=== PATIENT | female | born 1970 | race Asian ===

== ENCOUNTER 2021-09-21 17:10 | Emergency (ER) | payer OTHER, MEDICAID, SELFPAY ==
[2021-09-21] VITALS (10 sets, daily range): BP systolic 105–128; BP diastolic 59–78; PULSE 50–71; RESP 18–29; TEMP 36.2; O2SAT 98–99; BMI 20.5
--- NOTE | 2021-09-21 17:35 | ED.NEUROSD ---
HPI - Neuro Symptoms/Deficit General Chief Complaint: Neuro Symptoms/Deficit Stated Complaint: MOUTH AND LT SIDED NECK NUMBNESS Time Seen by Provider: 09/21/21 17:20 Source: patient and family Mode of arrival: Ambulatory History of Present Illness HPI Narrative: Patient is a 51-year-old female who presents today complaining of left sided jaw numbness and pain along the left side of the neck. She states that earlier today while she was working in her garden she started having this sensation. She states that she has had a history of TIA in the past. She also was having some upper abdominal epigastric pain that was brief and has subsided. Patient mentioned it during our interaction however she is not concerned about it and does not feel it warrants investigation. Patient denies headache or vision changes. She recently traveled from [place] in the last few months she did receive 1 COVID vaccine but did not receive any subsequent vaccines. She denies any fever cough chills congestion shortness of breath chest pain. She denies any nausea or vomiting or diarrhea. On Anticoagulants: No Related Data Allergies Allergy/AdvReac Type Severity Reaction Status Date / Time No Known Drug Allergies Allergy Verified 09/21/21 17:29 Review of Systems Review of Systems ROS Unobtainable: All systems reviewed & are unremarkable except as noted in HPI and below Constitutional Constitutional: Denies chills, Denies fatigue, Denies fever(s), Denies frequent falls, Denies lethargy and Denies weakness Eyes Eyes: Denies change in vision, Denies eye discharge, Denies irritation and Denies loss of vision ENT Ears, Nose, Mouth, and Throat: Denies change in voice, Denies dizziness, Reports facial pain, Reports neck pain, Denies sore throat and Denies throat swelling Cardiovascular Cardiovascular: Denies chest pain, Denies irregular heart rhythm, Denies lightheadedness, Denies palpitations, Denies dyspnea, Denies dyspnea on exertion and Denies orthopnea Respiratory Respiratory: Denies cough, Denies dyspnea, Denies dyspnea on exertion and Denies wheezing Gastrointestinal Gastrointestinal: Denies abdominal pain, Denies change in bowel habits, Denies diarrhea, Denies nausea and Denies vomiting Genitourinary Genitourinary: Denies hematuria, Denies flank pain, Denies urinary incontinence and Denies urinary urgency Musculoskeletal Musculoskeletal: Denies back pain, Denies muscle weakness, Reports neck pain, Denies numbness and Denies tingling Integumentary/Breasts Skin/Breast: Denies pruritus, Denies erythema, Denies rash and Denies wounds Neurologic Neurologic: Denies behavioral changes, Denies confusion, Denies dizziness, Denies frequent falls, Denies loss of vision, Denies numbness, Denies tingling and Denies weakness Psychiatric Psychiatric: Denies anxiety, Denies behavioral changes, Denies confusion, Denies depression, Denies homicidal ideation and Denies suicidal ideation Endocrine Endocrine: Denies fatigue, Denies flushing and Denies palpitations Hematologic/Lymphatic Hematologic/Lymphatic: Denies easy bruising On Anticoagulants: No Allergic/Immunologic Allergic/Immunologic: Denies urticaria, Denies throat swelling and Denies wheezing Patient History Social History Smoking Status: Never smoker Smoking Status: Never smoker alcohol intake frequency: 0-2 drinks per day Substance Use Type: does not use Exam Initial Vital Signs Initial Vital Signs: Vital Signs Temperature 97.1 F L 09/21/21 17:13 Pulse Rate 71 09/21/21 17:13 Respiratory Rate 18 09/21/21 17:13 Blood Pressure 128/78 09/21/21 17:13 Pulse Oximetry 98 09/21/21 17:13 Const General: cooperative, healthy appearing, comfortable and well developed Nutritional Appearance: average body habitus Orientation: Orientation [facility] Head: normal to inspection, normocephalic and atraumatic Ears: hearing grossly normal bilaterally and external ears normal Nose: external nose normal and nares normal Face and sinus: normal facial exam, face symmetric and tenderness on the left mandible, submandibular and angle of jaw Neck Neck: normal visual inspection, full ROM, no meningeal signs and tender Resp Effort & Inspection: normal respiratory effort and able to speak in complete sentences Auscultation: clear to auscultation bilaterally Cardio Rate: regular rate Rhythm: regular rhythm Heart Sounds: S1 normal and S2 normal Back/Spine/Pelvis Cervical Spine: pain with cervical ROM, cervical spasm and cervical spinal tenderness Skin General: no rashes or lesions noted Neuro General: patient alert, patient awake, patient oriented x3, moves all extremities, CN's II-XI intact bilaterally and deep tendon reflexes 2+ bilaterally Cranial Nerves: CN's II-XI intact bilaterally, sense of smell intact, PERRL, accommodation normal, EOM intact bilaterally, facial strength normal, tongue midline, hearing normal, able to rotate head bilaterally and able to elevate shoulders bilaterally Cognition: normal cognition Speech: speech normal Gait: normal gait Motor: muscle tone normal throughout, strength 5/5 throughout and no pronator drift Course Orders Ordered: ED Orders 09/21/21 17:33 CT head/brain wo con Stat CBC Auto Diff [Complete Blood Count AUTO DIFF] Stat 09/21/21 17:36 XR cervical spine 2V or 3V Stat EKG-12 Lead Routine 09/21/21 17:37 COVID19 -Nasal swab/Pre-Proc Stat 09/21/21 17:40 CT soft tissue neck w con Stat Troponin & CK Cardiac Panel Stat 09/21/21 17:41 CMP [Comprehensive Metabolic Panel] Stat Vital Signs Vital signs: Vital Signs - 8 hr 09/21/21 17:13 Temperature 97.1 F L Pulse Rate 71 Respiratory Rate 18 Blood Pressure 128/78 Pulse Oximetry 98 Discharge Plan Departure Referrals: Caterina Bonilla MD [Primary Care Provider] -
--- NOTE | 2021-09-21 17:41 | PC.NURSE ---
Patient presents with c/o numbness inside mouth, left side of face and pain in left side of neck. Patient reports episode of epigastric abd pain and dizziness while driving around 1330 which has sense resolved. Patient states she has had some GI issues over last week after a new medication for female issues Patient also states she has had some intermittent dizziness and generalized fatigue over the weekend. At time of TIA workup in [place] couple months ago patient had elevated cholesterol, which has now improved. Patient continues to take aspirin.
--- NOTE | 2021-09-21 17:51 | PC.NURSE ---
Patient declined blood draw. Provider aware
[2021-09-21 18:20] LABS: COVID19 -Nasal RAPID Negative (Negative)
[2021-09-21 19:01] LABS: Add Manual Diff / Slide Review NO; Basophils Absolute Auto 100 /uL (0-100); Basophils Percent Auto 1.7 % (0-2); Eosinophils Absolute Auto 100 /uL (0-450); Eosinophils Percent Auto 2.5 % (2-4); Hemoglobin 11.8 g/dL (12.0-16.0); Lymphocytes Absolute Auto 1700 /uL (1100-4500); Lymphocytes Percent Auto 40.7 % (25-40); Mean Corpuscular HGB Conc 33.7 % (30-36); Mean Corpuscular Hemoglobin 30.4 PG (26-34); Mean Corpuscular Volume 90.3 fL (80-100); Monocytes Absolute Auto 400 /uL (0-900); Monocytes Percent Auto 10.1 % (3-14); Neutrophils Absolute Auto 1900 /uL (1500-7000); Platelet Count 177 X10^3/uL (150-400); Red Blood Cell Count 3.88 X10^6/uL (4.0-5.2); Red Cell Distribution Width 12.1 % (11.6-14.8); White Blood Cell Count 4.2 X10^3/uL (4.5-11.0)
[2021-09-21 19:11] LABS: Creatine Kinase 70 U/L (30-135)
[2021-09-21 19:24] LABS: Troponin I < 0.012 ng/mL (0.01-0.034)
[2021-09-21 20:28] LABS: Alanine Aminotransferase 18 IU/L (<35); Albumin 4.4 g/dL (3.5-5.0); Albumin Globulin Ratio 1.5 (1.0-2.8); Alkaline Phosphatase 88 U/L (38-126); Aspartate Aminotransferase 33 IU/L (14-36); BUN Creatinine Ratio 25.4 (6-22); Bilirubin Total 0.3 mg/dL (0.2-1.3); Blood Urea Nitrogen 17 mg/dL (7-17); Calcium 9.1 mg/dL (8.4-10.2); Carbon Dioxide 28 mmol/L (22-32); Chloride 105 mmol/L (98-107); Estimated Glomerular Filt Rate > 60.0 mL/min (>60); Glucose 84 mg/dL (70-100); HEMOLYSIS < 15 (0-50); Potassium 3.7 mmol/L (3.4-5.1); Sodium 140 mmol/L (137-145); Total Protein 7.4 g/dL (6.3-8.2)
--- NOTE | 2021-09-21 22:26 | PC.NURSE ---
At 2200 this evening pt said she was ready to leave and go home. Pt already refused IV access and CT scan earlier. Pt educated that additional tests are wanted by MD prior to discharge. Pt acknowledged nursing education, but decided to leave AMA. AMA Paperwork signed and pt called for ride.
== END 2021-09-21 22:00 | disposition left against medical advice (07) ==
PROVIDERS: Physician Assistant; Emergency Provider Emergency Medicine; PCP Internal Medicine
DX: R20.0 Anesthesia of skin (principal); M54.2 Cervicalgia; Z53.29 Procedure and treatment not carried out because of patient's decision for other reasons; Z20.822 Contact with and (suspected) exposure to COVID-19
CPT/HCPCS: 36415; 80053; 82550; 84484; 85025; 87635; 93005; 99283; 99284; C9803